=== PATIENT | female | born 1995 | race American Indian/Alaskan Native ===

== ENCOUNTER 2022-04-05 13:30 | Emergency (ER) | payer MEDICAID | END 2022-04-06 04:11 | disposition left against medical advice (07) | LOC: ED 13:30 | DX: R07.0 Pain in throat (principal); Z53.21 Procedure and treatment not carried out due to patient leaving prior to being seen by health care provider ==

== ENCOUNTER 2022-06-21 22:33 | Emergency (ER) | payer OTHER, MEDICAID ==
[2022-06-22] MEDS ORDERED: CYCLOBENZAPRINE 10 MG TAB PO ONE (01:10)
[2022-06-22] MEDS ORDERED: IBUPROFEN 600 MG TAB PO ONE (01:10)
[2022-06-22] MEDS ORDERED: ACETAMINOPHEN 325 MG TAB PO ONE (01:10)
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
[2022-06-22 02:20] VITALS: BP 147/109
== END 2022-06-22 02:56 | disposition home or self-care (01) ==
LOC: ED 22:33
DX: S43.402A Unspecified sprain of left shoulder joint, initial encounter (principal); S16.1XXA Strain of muscle, fascia and tendon at neck level, initial encounter; V89.2XXA Person injured in unspecified motor-vehicle accident, traffic, initial encounter; Y93.89 Activity, other specified; Y92.89 Other specified places as the place of occurrence of the external cause; Y99.8 Other external cause status
CPT/HCPCS: 99283